=== PATIENT | female | born 1995 | race African-American/Black ===

== ENCOUNTER 2019-12-14 09:36 | Inpatient (IN) ==
[2019-12-14] MEDS ORDERED: CITRIC ACID/SODIUM CITRATE 30 ML UDCUP PO ONE (10:15)
[2019-12-14] MEDS ORDERED: FAMOTIDINE 20 MG/2 ML VIAL IV ONE (10:22)
[2019-12-14] MEDS ORDERED: ceFAZolin 3,000 MG in SYRINGE 1 EACH IV ONE (10:22)
[2019-12-14] MEDS ORDERED: LACTATED RINGERS 1,000 ML IV SCH ×3 (10:30→16:00)
[2019-12-14 10:39] LABS: Basophils # 0.1 10*3/uL (0.0-0.2); Basophils % 0.7 % (0.0-0.8); Eosinophils % 0.2 % (0.00-10.9); Hematocrit 25.5 VOL% (35.7-47.0); Hemoglobin 8.1 GM/DL (12.0-16.0); Immature Granulocytes % 0.3 %; Immature Granulocytes Absolute 0.03 #; Lymphocytes # 2.1 10*3/uL (1.4-4.0); Mean Corpuscular HGB Conc 31.8 GM/DL (32-36); Mean Corpuscular Volume 78.9 FL (87-102); Monocytes % 8.7 % (1.7-12.7); Neutrophils % 66.1 % (38.7-73.9); Platelet Count 281 T/CUMM (130-400); Red Blood Count 3.23 MC/CUMM (3.8-5.5); Red Cell Distribution Width 14.5 % (9.3-17.3); White Blood Count 8.7 T/CUMM (4-12)
[2019-12-14] MEDS ORDERED: TRANEXAMIC ACID 1,000 MG/10 ML VIAL ONE (12:04)
[2019-12-14] MEDS ORDERED: miSOPROStoL 200 MCG TABLET ONE (12:04)
[2019-12-14] MEDS ORDERED: OXYTOCIN/LR 0 UNIT/0 ML BAG IV ONE (12:04)
[2019-12-14] MEDS ORDERED: METHYLERGONOVINE 0.2 MG/1 ML AMP ONE (12:04)
[2019-12-14] MEDS ORDERED: CARBOPROST TROMETHAMINE 250 MCG/ML AMP IM ONE (12:05)
[2019-12-14] MEDS ORDERED: OXYTOCIN 10 UNIT/ML VIAL IM ONE (12:09)
[2019-12-14] MEDS ORDERED: OXYTOCIN/LR 30 UNIT/1,000 ML BAG IV ONE (12:10)
[2019-12-14] MEDS ORDERED: FUROSEMIDE 40 MG/4 ML VIAL ONE (14:13)
[2019-12-14 14:24] LABS: Cord Arterial Blood HCO3 21.5 MMOL/L
[2019-12-14 14:26] LABS: Cord Venous Blood PCO2 48.7 MMHG; Cord Venous Blood PO2 19.6 MMHG
[2019-12-14 14:28] LABS: Bilirubin,Urine Negative (Negative); Blood, Urine Negative (Negative); Glucose,Urine (UA) Negative (Negative); Ketones,Urine 5 mg/dL (Negative); Nitrite,Urine Negative (Negative); Protein,Urine Negative; Urine Appearance CLEAR (Clear); Urine Color Straw (Yellow); Urine Specific Gravity 1.003 (1.001-1.035); Urine Urobilinogen < 2.0 EU/DL (0.2-1.0); WBC,Urine <1 /HPF (0-6)
[2019-12-14 14:29] LABS: Cord Arterial Blood HCO3 22.8 MMOL/L
[2019-12-14 14:31] LABS: Cord Venous Blood HCO3 24.1 MMOL/L; Cord Venous Blood PCO2 43.4 MMHG; Cord Venous Blood PO2 27.2 MMHG
[2019-12-14] MEDS ORDERED: MORPHINE 10 MG/10 ML VIAL ONE (14:37)
[2019-12-14] MEDS ORDERED: BUPIVACAINE SPINAL 0.75% 2 ML AMP SPINAL ONE (14:37)
[2019-12-14] MEDS ORDERED: DEXAMETHASONE 4 MG/1 ML VIAL ONE (14:38)
[2019-12-14] MEDS ORDERED: ONDANSETRON 4 MG/2 ML VIAL ONE (14:38)
[2019-12-14] MEDS ORDERED: ACETAMINOPHEN 325 MG TABLET PO PRN (15:41)
[2019-12-14] MEDS ORDERED: ONDANSETRON 4 MG/2 ML VIAL IV PRN (15:41)
[2019-12-14] MEDS ORDERED: RHO(D) IMMUNE GLOBULIN 300 MCG SYRINGE IM ONE (15:41)
[2019-12-14] MEDS ORDERED: SIMETHICONE CHEW 80 MG TABLET PO PRN (15:41)
[2019-12-14] MEDS ORDERED: MAGNESIUM HYDROXIDE SUSP 30 ML UDCUP PO PRN (15:41)
[2019-12-14] MEDS ORDERED: OXYTOCIN/LR 20 UNIT/1,000 ML BAG IV ONE (15:41)
[2019-12-14] MEDS ORDERED: ceFAZolin 1,000 MG in SYRINGE 1 EACH IV SCH (16:00)
[2019-12-14] MEDS: diphenhydrAMINE 50 MG/1 ML VIAL IV PRN (20:22)
[2019-12-14] MEDS: FUROSEMIDE 40 MG/4 ML VIAL IV SCH (20:25)
[2019-12-14 22:31] LABS: Basophils % 0.3 % (0.0-0.8); Hematocrit 24.5 VOL% (35.7-47.0); Hemoglobin 7.6 GM/DL (12.0-16.0); Immature Granulocytes % 0.7 %; Lymphocytes # 1.7 10*3/uL (1.4-4.0); Lymphocytes % 11.4 % (21.3-54.2); Mean Corpuscular Volume 81.1 FL (87-102); Monocytes % 7.5 % (1.7-12.7); Neutrophils % 80.1 % (38.7-73.9); Platelet Count 291 T/CUMM (130-400); Red Blood Count 3.02 MC/CUMM (3.8-5.5); Red Cell Distribution Width 14.6 % (9.3-17.3)
[2019-12-14 22:32] LABS: White Blood Count 15.1 T/CUMM (4-12)
[2019-12-15] MEDS: DOCUSATE SODIUM 100 MG CAPSULE PO SCH ×3 (01:45→20:52)
[2019-12-15] MEDS: diphenhydrAMINE 50 MG/1 ML VIAL IV PRN ×2 (01:59→07:50)
[2019-12-15] MEDS: FUROSEMIDE 40 MG/4 ML VIAL IV SCH ×2 (02:00→12:00)
[2019-12-15 06:27] LABS: Basophils % 0.3 % (0.0-0.8); Eosinophils % 0.2 % (0.00-10.9); Hemoglobin 6.6 GM/DL (12.0-16.0); Immature Granulocytes % 0.7 %; Immature Granulocytes Absolute 0.11 #; Lymphocytes # 2.3 10*3/uL (1.4-4.0); Lymphocytes % 14.7 % (21.3-54.2); Mean Corpuscular HGB Conc 31.4 GM/DL (32-36); Mean Corpuscular Volume 79.5 FL (87-102); Mean Platelet Volume 10.3 FL (9.6-12.0); Monocytes % 10.3 % (1.7-12.7); Neutrophils % 73.8 % (38.7-73.9); Platelet Count 291 T/CUMM (130-400); Red Blood Count 2.64 MC/CUMM (3.8-5.5); Red Cell Distribution Width 14.4 % (9.3-17.3); White Blood Count 15.9 T/CUMM (4-12)
[2019-12-15] MEDS ORDERED: SODIUM CHLORIDE 0.9% 1,000 ML IV PRN (07:14)
[2019-12-15] MEDS: IBUPROFEN 800 MG TABLET PO PRN ×2 (07:41→14:26)
[2019-12-15] MEDS: MULTIVITAMIN (PRENATAL) TABLET PO SCH (12:40)
[2019-12-15] MEDS ORDERED: FUROSEMIDE 40 MG/4 ML VIAL IV ONE (13:30)
[2019-12-15 18:05] LABS: Basophils # 0.1 10*3/uL (0.0-0.2); Basophils % 0.4 % (0.0-0.8); Eosinophils % 0.1 % (0.00-10.9); Hematocrit 29.4 VOL% (35.7-47.0); Hemoglobin 9.5 GM/DL (12.0-16.0); Immature Granulocytes % 0.7 %; Immature Granulocytes Absolute 0.13 #; Lymphocytes # 4.1 10*3/uL (1.4-4.0); Lymphocytes % 23.4 % (21.3-54.2); Mean Corpuscular HGB Conc 32.3 GM/DL (32-36); Mean Corpuscular Volume 83.8 FL (87-102); Mean Platelet Volume 10.1 FL (9.6-12.0); NRBC # 0.02 10*3/uL; Neutrophils % 66.4 % (38.7-73.9); Platelet Count 310 T/CUMM (130-400); Red Blood Count 3.51 MC/CUMM (3.8-5.5); White Blood Count 17.5 T/CUMM (4-12)
[2019-12-15 19:18] LABS: Lymphocytes 16 % (20-55); Segmented Neutrophils 75 % (50-85); Total Cells Counted 100
[2019-12-15 19:19] LABS: Anisocytosis 1+; Polychromasia Few
[2019-12-15 19:20] LABS: Hypochromasia Slight; Platelet Estimate Adequate
[2019-12-16] MEDS: MULTIVITAMIN (PRENATAL) TABLET PO SCH (08:19)
[2019-12-16] MEDS: IBUPROFEN 800 MG TABLET PO PRN ×2 (08:20)
[2019-12-16] MEDS: DOCUSATE SODIUM 100 MG CAPSULE PO SCH (09:55)
[2019-12-16 09:56] VITALS: BP 142/79
== END 2019-12-16 13:45 | disposition home or self-care (01) | DRG 540 ==
LOC: N.LD 09:36 → N.OB 17:49
PROVIDERS: ADMIT Obstetrics & Gynecology; ATTEND Obstetrics & Gynecology
PROC: LDCSECT (ICD-10-PCS; 2019-12-14 13:15)